=== PATIENT | female | born 1955 | race African-American/Black ===

== ENCOUNTER 2018-11-09 13:45 | Emergency (ER) | payer OTHER ==
[~2018-11-09] VITALS: Ht 149.9 cm; Wt 77.0 kg
[~2018-11-09 13:45] MED LIST: ACET-3161 PO; ALBU25PO2 INH; DIAZ10TA PO; FLUT1DIS3 IH; INHALER; LOSA25TA3 PO; NIFE10CA PO; NITR0.4T49 SL; P20 PO; Z PACK
[2018-11-09] MEDS ORDERED: ONDANSETRON HCL 4MG/2ML INJ IV STA (15:12)
[2018-11-09] MEDS ORDERED: MORPHINE SULFATE 4 MG/ML CPJ (NOT FOR IM USE) IV STA (15:12)
[2018-11-09 15:39] LABS: BASOPHILS % 1.2 % (0.0-2.0); EOSINOPHILS % 2.2 % (0.0-5.0); HEMATOCRIT. 45.7 % (36.0-48.0); HEMOGLOBIN. 14.8 g/dL (12.0-16.0); LYMPHOCYTES % 43.1 % (20.0-50.0); MEAN CORPUSCULAR HEMOGLOBIN 30.7 pg (28.0-32.0); MEAN CORPUSCULAR VOLUME 94.7 fL (81.0-99.0); MEAN PLATELET VOLUME 7.9 fl (7.4-10.4); MONOCYTES % 7.6 % (2.0-8.0); NEUTROPHILS % 45.9 % (40.0-76.0); PLATELET 272 x1000/uL (130-400); RED BLOOD CELL COUNT 4.82 mill/uL (4.2-5.4); RED CELL DISTRIBUTION WIDTH 14.3 % (11.6-14.6)
[2018-11-09 15:48] LABS: INR 1.1; PROTHROMBIN TIME 10.7 sec (9.1-11.1)
[2018-11-09 15:49] LABS: CHLORIDE 110 mEq/L (98-107)
[2018-11-09 16:28] LABS: CLARITY URINE CLEAR (CLEAR); COLOR URINE YELLOW (YELLOW); KETONES URINE NEGATIVE (NEGATIVE); LEUKOCYTE ESTERASE URINE NEGATIVE (NEGATIVE); NITRITE URINE NEGATIVE (NEGATIVE); OCCULT BLOOD URINE TRACE (NEGATIVE); PROTEIN URINE NEGATIVE (NEGATIVE); SPECIFIC GRAVITY URINE 1.014 (1.005-1.030); UROBILINOGEN URINE 0.2 E.U./dL (0.2-1.0)
[2018-11-09] MEDS ORDERED: MORPHINE SULFATE 4 MG/ML CPJ (NOT FOR IM USE) IV ONE (17:00)
[2018-11-09 18:10] VITALS: BP 145/85
== END 2018-11-09 18:11 | disposition home or self-care (01) ==
LOC: ER 13:45
DX: K92.2 Gastrointestinal hemorrhage, unspecified (principal); I10 Essential (primary) hypertension; J45.909 Unspecified asthma, uncomplicated; Z88.6 Allergy status to analgesic agent; F17.200 Nicotine dependence, unspecified, uncomplicated; Z98.890 Other specified postprocedural states
CPT/HCPCS: 36415; 74176; 80053; 81003; 83690; 85025; 85610; 96374; 96375; 96376; 99284; J2270; J2405

== ENCOUNTER 2020-09-05 13:03 | Inpatient (IN) | payer MEDICARE, OTHER ==
[~2020-09-05] VITALS: Ht 149.9 cm; Wt 81.2 kg
[2020-09-05] MEDS ORDERED: DILTIAZEM HCL 5MG/ML 5ML VIAL IV ONE ×2 (13:45→14:45)
[2020-09-05 14:20] LABS: BASOPHILS % 0.7 % (0.0-2.0); EOSINOPHILS % 1.8 % (0.0-5.0); HEMATOCRIT. 43.2 % (36.0-48.0); HEMOGLOBIN. 14.2 g/dL (12.0-16.0); MEAN CORPUSCULAR HEMOGLOBIN 30.5 pg (28.0-32.0); MEAN CORPUSCULAR VOLUME 92.7 fL (81.0-99.0); MEAN PLATELET VOLUME 8.3 fl (7.4-10.4); MONOCYTES % 6.4 % (2.0-8.0); NEUTROPHILS % 45.1 % (40.0-76.0); PLATELET 274 x1000/uL (130-400); RED BLOOD CELL COUNT 4.66 mill/uL (4.2-5.4); RED CELL DISTRIBUTION WIDTH 14.7 % (11.6-14.6)
[2020-09-05 14:36] LABS: CHLORIDE 111 mEq/L (98-107)
[2020-09-05 14:43] LABS: BETA HYDROXYBUTYRATE 0.1 mMol/L (0.0-0.3)
[2020-09-05 14:56] LABS: CLARITY URINE CLEAR (CLEAR); COLOR URINE YELLOW (YELLOW); KETONES URINE NEGATIVE (NEGATIVE); LEUKOCYTE ESTERASE URINE NEGATIVE (NEGATIVE); NITRITE URINE NEGATIVE (NEGATIVE); OCCULT BLOOD URINE NEGATIVE (NEGATIVE); PH URINE 8.5 (4.5-8.0); PROTEIN URINE NEGATIVE (NEGATIVE); SPECIFIC GRAVITY URINE 1.004 (1.005-1.030); UROBILINOGEN URINE 0.2 E.U./dL (0.2-1.0)
[2020-09-05] MEDS ORDERED: POTASSIUM CHLORIDE 20MEQ TABLET SR PO NR (15:00)
[2020-09-05 15:11] LABS: *AMPHETAMINES SCREEN URINE NEGATIVE (NEGATIVE); *BARBITURATES SCREEN URINE NEGATIVE (NEGATIVE); *BENZODIAZEPINES SCREEN URINE NEGATIVE (NEGATIVE); *COCAINE SCREEN URINE NEGATIVE (NEGATIVE)
[2020-09-05 15:12] LABS: CANNABINOID URINE SCREEN NEGATIVE (NEGATIVE); METHADONE URINE SCREEN NEGATIVE (NEGATIVE); OPIATES URINE SCREEN NEGATIVE (NEGATIVE); PHENCYCLIDINE URINE SCREEN NEGATIVE (NEGATIVE)
[2020-09-05] MEDS: ENOXAPARIN 80MG/0.8ML SYR SUBCUT SCH (15:20)
[2020-09-05] MEDS ORDERED: DILTIAZEM HCL 5MG/ML 5ML VIAL IV PRN (15:51)
[2020-09-05 16:47] LABS: PROTHROMBIN TIME 10.4 sec (9.6-11.0)
[2020-09-05] MEDS: DILTIAZEM HCL 60MG TABLET PO SCH (18:01)
[2020-09-05] MEDS ORDERED: ACETAMINOPHEN 325MG TABLET PO PRN ×2 (20:30)
[2020-09-05] MEDS ORDERED: ONDANSETRON HCL 4MG/2ML INJ IV PRN (20:30)
[2020-09-05] MEDS ORDERED: DOCUSATE SODIUM 100MG CAPSULE PO PRN (20:30)
[2020-09-05] MEDS ORDERED: LORAZEPAM 0.5MG TABLET PO PRN (20:30)
[2020-09-05] MEDS ORDERED: IPRATROPIUM/ALBUTEROL 0.5-3(2.5)MG/3ML NEB HHN PRN (20:30)
[2020-09-05] MEDS ORDERED: DILTIAZEM HCL 30MG TABLET PO SCH (22:00)
[2020-09-05 23:55] VITALS: BP 184/75
[2020-09-06] VITALS (9 sets, daily range): BP systolic 136–181; BP diastolic 71–113
[2020-09-06] MEDS: DILTIAZEM HCL 60MG TABLET PO SCH ×5 (01:02→23:05)
[2020-09-06] MEDS: MORPHINE SULFATE 2 MG/ML CPJ (NOT FOR IM USE) IV PRN ×4 (01:02→22:45)
[2020-09-06] MEDS: ENOXAPARIN 80MG/0.8ML SYR SUBCUT SCH ×2 (05:19→15:25)
[2020-09-06 06:34] LABS: HEMATOCRIT. 41.1 % (36.0-48.0); HEMOGLOBIN. 13.4 g/dL (12.0-16.0); LYMPHOCYTES % 43.4 % (20.0-50.0); MEAN CORPUSCULAR HEMOGLOBIN 30.2 pg (28.0-32.0); MEAN CORPUSCULAR VOLUME 92.6 fL (81.0-99.0); MEAN PLATELET VOLUME 8.2 fl (7.4-10.4); MONOCYTES % 7.7 % (2.0-8.0); NEUTROPHILS % 45.9 % (40.0-76.0); PLATELET 265 x1000/uL (130-400); RED BLOOD CELL COUNT 4.44 mill/uL (4.2-5.4); RED CELL DISTRIBUTION WIDTH 14.8 % (11.6-14.6)
[2020-09-06 07:18] LABS: CHLORIDE 107 mEq/L (98-107)
[2020-09-06 07:26] LABS: LDL CHOLESTEROL 181 mg/dL (5-100)
[2020-09-06 07:27] LABS: HDL CHOLESTEROL 46 mg/dL (40-59)
[2020-09-06] MEDS ORDERED: PNEUMOCOCCAL 23-VAL P-SAC VAC 0.5 ML IM ONE (12:00)
[2020-09-06] MEDS ORDERED: INFLUENZA VACCINE 05/PF 0.5 ML VIAL IM ONE (12:00)
[2020-09-07] VITALS (12 sets, daily range): BP systolic 120–199; BP diastolic 38–89
[2020-09-07] MEDS: DILTIAZEM HCL 60MG TABLET PO SCH ×3 (05:57→17:41)
[2020-09-07] MEDS: MORPHINE SULFATE 2 MG/ML CPJ (NOT FOR IM USE) IV PRN ×3 (05:57→22:01)
[2020-09-07] MEDS: ENOXAPARIN 80MG/0.8ML SYR SUBCUT SCH ×2 (05:58→15:09)
[2020-09-07 07:21] LABS: BASOPHILS % 1.1 % (0.0-2.0); EOSINOPHILS % 2.6 % (0.0-5.0); HEMATOCRIT. 43.4 % (36.0-48.0); HEMOGLOBIN. 14.2 g/dL (12.0-16.0); LYMPHOCYTES % 41.3 % (20.0-50.0); MEAN CORPUSCULAR HEMOGLOBIN 30.4 pg (28.0-32.0); MEAN CORPUSCULAR VOLUME 92.9 fL (81.0-99.0); MEAN PLATELET VOLUME 8.2 fl (7.4-10.4); MONOCYTES % 7.1 % (2.0-8.0); NEUTROPHILS % 47.9 % (40.0-76.0); PLATELET 267 x1000/uL (130-400); RED BLOOD CELL COUNT 4.67 mill/uL (4.2-5.4)
[2020-09-07 08:00] LABS: CHLORIDE 104 mEq/L (98-107)
[2020-09-07] MEDS ORDERED: LOSARTAN POTASSIUM 50 MG TABLET PO SCH (13:00)
[2020-09-07] MEDS ORDERED: POTASSIUM CHLORIDE 20MEQ TABLET SR PO NR (13:00)
[2020-09-07] MEDS: LOSARTAN POTASSIUM 25 MG TABLET PO SCH ×2 (15:00→17:40)
[2020-09-07] MEDS: CLONIDINE 0.1MG TABLET PO PRN (16:26)
[2020-09-07] MEDS: ATORVASTATIN CALCIUM 20MG TABLET PO SCH (22:00)
[2020-09-08] VITALS (9 sets, daily range): BP systolic 120–197; BP diastolic 50–128
[2020-09-08] MEDS: MORPHINE SULFATE 2 MG/ML CPJ (NOT FOR IM USE) IV PRN (00:45)
[2020-09-08] MEDS: DILTIAZEM HCL 60MG TABLET PO SCH ×5 (00:45→23:40)
[2020-09-08 06:44] LABS: BASOPHILS % 1.2 % (0.0-2.0); EOSINOPHILS % 3.4 % (0.0-5.0); HEMATOCRIT. 42.2 % (36.0-48.0); HEMOGLOBIN. 13.8 g/dL (12.0-16.0); LYMPHOCYTES % 36.6 % (20.0-50.0); MEAN CORPUSCULAR HEMOGLOBIN 30.3 pg (28.0-32.0); MEAN CORPUSCULAR VOLUME 92.4 fL (81.0-99.0); MEAN PLATELET VOLUME 7.8 fl (7.4-10.4); MONOCYTES % 7.8 % (2.0-8.0); PLATELET 259 x1000/uL (130-400); RED BLOOD CELL COUNT 4.57 mill/uL (4.2-5.4)
[2020-09-08 07:04] LABS: CHLORIDE 105 mEq/L (98-107)
[2020-09-08] MEDS: SODIUM CHLORIDE 0.45% 1000ML IV SCH ×2 (08:40→21:20)
[2020-09-08] MEDS: LOSARTAN POTASSIUM 25 MG TABLET PO SCH ×2 (08:40→16:01)
[2020-09-08] MEDS: CLONIDINE 0.1MG TABLET PO PRN ×3 (10:11→20:11)
[2020-09-08] MEDS ORDERED: HEPARIN SODIUM 1,000 UNIT/1ML VIAL IV ONE (12:00)
[2020-09-08] MEDS ORDERED: NITROGLYCERIN 50MCG/ML 10ML VIAL (CATH LAB) IV ONE (12:00)
[2020-09-08] MEDS ORDERED: NICARDIPINE 100MCG/ML 10ML VIAL (CATH LAB) IV ONE (12:00)
[2020-09-08] MEDS ORDERED: LIDOCAINE HCL 1% 20ML VIAL (Pyxis) INJ ONE (14:45)
[2020-09-08] MEDS ORDERED: IODIXANOL 320MG/ML 100 ML BOTTLE IV ONE (14:45)
[2020-09-08] MEDS ORDERED: ASPIRIN/SOD BICARB/CITRIC ACID 324MG TAB EFF ONE (14:45)
[2020-09-08] MEDS ORDERED: MIDAZOLAM HCL 2 MG/2 ML VIAL ONE (14:53)
[2020-09-08] MEDS ORDERED: FENTANYL CITRATE/PF 50MCG/ML 2ML VIAL ONE (14:53)
[2020-09-08] MEDS ORDERED: DIPHENHYDRAMINE 50MG/ML VIAL ONE (14:57)
[2020-09-08] MEDS ORDERED: HYDROCORTISONE SOD SUCCINATE 250 MG/2 ML VIAL ONE (14:58)
[2020-09-08] MEDS ORDERED: FAMOTIDINE 20MG/2ML VIAL IV ONE (14:59)
[2020-09-08] MEDS ORDERED: ACETAMINOPHEN 325MG TABLET PO PRN (15:15)
[2020-09-08] MEDS ORDERED: SODIUM CHLORIDE 0.45% 1,000 ML IV ONE (15:15)
[2020-09-08] MEDS ORDERED: ATROPINE SULFATE 1MG/10ML SYR IV PRN (15:15)
[2020-09-08] MEDS ORDERED: MORPHINE SULFATE 2 MG/ML CPJ (NOT FOR IM USE) IV PRN (15:15)
[2020-09-08] MEDS ORDERED: ATOR20TA PO (17:37)
[2020-09-08] MEDS ORDERED: DILT240C91 MT (17:37)
[2020-09-08] MEDS ORDERED: APIX5TAB MT (17:37)
[2020-09-08] MEDS: HYDROCODONE/ACETAMINOPHEN 5/325MG TABLET PO PRN (18:00)
[2020-09-08] MEDS: ATORVASTATIN CALCIUM 20MG TABLET PO SCH (20:10)
[2020-09-08] MEDS ORDERED: ENALAPRIL 2.5MG/2ML VIAL 2ML IV PRN (22:00)
[2020-09-08] MEDS ORDERED: ENALAPRIL 2.5MG/2ML VIAL 2ML IV NR (22:00)
[2020-09-09] VITALS (7 sets, daily range): BP systolic 135–184; BP diastolic 60–82
[2020-09-09] MEDS: HYDROCODONE/ACETAMINOPHEN 5/325MG TABLET PO PRN (01:53)
[2020-09-09] MEDS: DILTIAZEM HCL 60MG TABLET PO SCH (05:34)
[2020-09-09 06:51] LABS: BASOPHILS % 0.5 % (0.0-2.0); EOSINOPHILS % 0.5 % (0.0-5.0); HEMATOCRIT. 39.8 % (36.0-48.0); HEMOGLOBIN. 12.9 g/dL (12.0-16.0); LYMPHOCYTES % 29.3 % (20.0-50.0); MEAN CORPUSCULAR HEMOGLOBIN 30.3 pg (28.0-32.0); MEAN CORPUSCULAR VOLUME 93.5 fL (81.0-99.0); MONOCYTES % 6.6 % (2.0-8.0); NEUTROPHILS % 63.1 % (40.0-76.0); PLATELET 240 x1000/uL (130-400); RED BLOOD CELL COUNT 4.26 mill/uL (4.2-5.4); RED CELL DISTRIBUTION WIDTH 14.8 % (11.6-14.6)
[2020-09-09 07:24] LABS: CHLORIDE 103 mEq/L (98-107)
[2020-09-09] MEDS: LOSARTAN POTASSIUM 25 MG TABLET PO SCH (07:32)
== END 2020-09-09 11:03 | disposition home health service (06) | DRG 190 ==
LOC: ER 13:03 → 5EST 16:18 → EDBEDREQ 16:19 → EDBEDREQSVC 16:19 → ENRESERV 20:31 → 3WST 09-08 15:37
PROVIDERS: ADMIT Internal Medicine; ATTEND Internal Medicine
PROC: 4A023N7 Measurement of Cardiac Sampling and Pressure, Left Heart, Percutaneous Approach (ICD-10-PCS; principal; 2020-09-08)
PROC: B2111ZZ Fluoroscopy of Multiple Coronary Arteries using Low Osmolar Contrast (ICD-10-PCS; 2020-09-08)
PROC: B2151ZZ Fluoroscopy of Left Heart using Low Osmolar Contrast (ICD-10-PCS; 2020-09-08)
DX: I21.4 Non-ST elevation (NSTEMI) myocardial infarction (principal); I50.32 Chronic diastolic (congestive) heart failure; I20.9 Angina pectoris, unspecified; E78.5 Hyperlipidemia, unspecified; I11.0 Hypertensive heart disease with heart failure; I48.20 Chronic atrial fibrillation, unspecified; R06.89 Other abnormalities of breathing; F17.200 Nicotine dependence, unspecified, uncomplicated; I95.9 Hypotension, unspecified; Z20.828 Contact with and (suspected) exposure to other viral communicable diseases; Z79.01 Long term (current) use of anticoagulants; Z88.6 Allergy status to analgesic agent; Z79.1 Long term (current) use of non-steroidal anti-inflammatories (NSAID); Z79.899 Other long term (current) drug therapy; E44.1 Mild protein-calorie malnutrition
CPT/HCPCS: 36415; 71045; 71250; 80048; 80053; 80061; 80305; 81003; 82010; 82378; 83605; 83735; 83880; 84145; 84443; 84484; 85025; 85651; 87426; 90686; 93005; 93306; 93458; 99285; C1769; C1887; C1893; J1200; J1644; J1650; J1720; J2250; J2270; J3010; J3490; Q9967

== ENCOUNTER 2020-10-10 05:57 | Emergency (ER) | payer MEDICARE, OTHER ==
[~2020-10-10] VITALS: Ht 162.6 cm; Wt 91.0 kg
[~2020-10-10 05:57] MED LIST changes: +APIX5TAB MT; +ATOR20TA PO; +DILT240C91 MT; -INHALER; -NIFE10CA PO; -Z PACK
[2020-10-10] MEDS ORDERED: DEXAMETHASONE 10 MG/ML VIAL IV ONE (06:45)
[2020-10-10] MEDS ORDERED: HYDRALAZINE HCL 25MG TABLET PO ONE (06:45)
[2020-10-10] MEDS ORDERED: DIPHENHYDRAMINE 50MG/ML VIAL IV ONE (06:45)
[2020-10-10] MEDS ORDERED: FAMOTIDINE 20MG/2ML VIAL IV ONE (06:45)
[2020-10-10] MEDS ORDERED: EPINEPHRINE 1:1000 1 MG/ML AMP IM ONE (07:45)
[2020-10-10 07:47] LABS: EOSINOPHILS % 1.6 % (0.0-5.0); HEMATOCRIT. 37.6 % (36.0-48.0); HEMOGLOBIN. 12.3 g/dL (12.0-16.0); LYMPHOCYTES % 24.5 % (20.0-50.0); MEAN CORPUSCULAR HEMOGLOBIN 30.1 pg (28.0-32.0); MEAN CORPUSCULAR VOLUME 91.9 fL (81.0-99.0); MEAN PLATELET VOLUME 7.3 fl (7.4-10.4); MONOCYTES % 5.6 % (2.0-8.0); NEUTROPHILS % 67.3 % (40.0-76.0); PLATELET 369 x1000/uL (130-400); RED BLOOD CELL COUNT 4.09 mill/uL (4.2-5.4); RED CELL DISTRIBUTION WIDTH 14.5 % (11.6-14.6)
[2020-10-10 07:56] LABS: CHLORIDE 109 mEq/L (98-107)
[2020-10-10] MEDS ORDERED: HYDROCODONE/ACETAMINOPHEN 5/325MG TABLET PO ONE (09:00)
[2020-10-10 10:47] VITALS: BP 211/135
== END 2020-10-10 10:49 | disposition home or self-care (01) ==
LOC: ER 05:57
DX: T78.40XA Allergy, unspecified, initial encounter (principal); R22.0 Localized swelling, mass and lump, head; I10 Essential (primary) hypertension; X58.XXXA Exposure to other specified factors, initial encounter
CPT/HCPCS: 36415; 80053; 85025; 93005; 96372; 96374; 96375; 99284; J1100; J3490

== ENCOUNTER 2020-12-11 13:33 | Inpatient (IN) | payer MEDICARE, OTHER ==
[~2020-12-11] VITALS: Ht 149.9 cm; Wt 80.3 kg
[2020-12-11] MEDS ORDERED: METHYLPREDNISOLONE SOD SUCC 125 MG/2 ML VIAL IV STA (13:53)
[2020-12-11] MEDS ORDERED: IPRATROPIUM BROMIDE (0.02%) 0.5MG/2.5ML NEB HHN STA (13:53)
[2020-12-11] MEDS ORDERED: MAGNESIUM 2 G PREMIX 50 ML IV ONE (14:00)
[2020-12-11 14:17] LABS: BASOPHILS % 0.7 % (0.0-2.0); HEMATOCRIT. 36.2 % (36.0-48.0); HEMOGLOBIN. 11.4 g/dL (12.0-16.0); LYMPHOCYTES % 24.5 % (20.0-50.0); MEAN CORPUSCULAR HEMOGLOBIN 26.6 pg (28.0-32.0); MEAN CORPUSCULAR VOLUME 84.3 fL (81.0-99.0); MEAN PLATELET VOLUME 6.8 fl (7.4-10.4); MONOCYTES % 8.3 % (2.0-8.0); NEUTROPHILS % 64.5 % (40.0-76.0); PLATELET 368 x1000/uL (130-400); RED CELL DISTRIBUTION WIDTH 16.9 % (11.6-14.6)
[2020-12-11 14:24] LABS: CHLORIDE 105 mEq/L (98-107)
[2020-12-11] MEDS: ALBUTEROL (0.083%) 2.5MG/3ML NEB HHN SCH ×3 (14:30→15:08)
[2020-12-11] MEDS ORDERED: AZITHROMYCIN 500 MG in DEXT 5% WATER 250 ML IV ONE (14:45)
[2020-12-11] MEDS ORDERED: SODIUM CHLORIDE 0.9% 1000ML BAG (SEPSIS BOLUS) IV ONE (14:45)
[2020-12-11] MEDS ORDERED: CEFTRIAXONE 1 G PREMIX 50 ML IV ONE (14:45)
[2020-12-11 17:24] LABS: CLARITY URINE CLEAR (CLEAR); COLOR URINE YELLOW (YELLOW); KETONES URINE NEGATIVE (NEGATIVE); LEUKOCYTE ESTERASE URINE NEGATIVE (NEGATIVE); NITRITE URINE NEGATIVE (NEGATIVE); OCCULT BLOOD URINE NEGATIVE (NEGATIVE); PROTEIN URINE NEGATIVE (NEGATIVE); SPECIFIC GRAVITY URINE 1.013 (1.005-1.030); UROBILINOGEN URINE 0.2 E.U./dL (0.2-1.0)
[2020-12-11] MEDS ORDERED: HYDROCODONE/ACETAMINOPHEN 5/325MG TABLET PO ONE (17:45)
[2020-12-12] VITALS (7 sets, daily range): BP systolic 140–211; BP diastolic 68–122
[2020-12-12] MEDS: CLONIDINE 0.1MG TABLET PO PRN ×2 (00:12→06:43)
[2020-12-12] MEDS: HYDROCODONE/ACETAMINOPHEN 5/325MG TABLET PO PRN ×3 (00:12→17:47)
[2020-12-12] MEDS ORDERED: MORPHINE SULFATE 2 MG/ML CPJ (NOT FOR IM USE) IV PRN (08:45)
[2020-12-12] MEDS ORDERED: ONDANSETRON HCL 4MG/2ML INJ IV PRN (08:45)
[2020-12-12] MEDS ORDERED: NITROGLYCERIN 0.4MG TABLET SL SL PRN (08:45)
[2020-12-12] MEDS ORDERED: DOCUSATE SODIUM 100MG CAPSULE PO PRN (08:45)
[2020-12-12] MEDS ORDERED: IPRATROPIUM/ALBUTEROL 0.5-3(2.5)MG/3ML NEB HHN PRN (08:45)
[2020-12-12] MEDS ORDERED: LORAZEPAM 0.5MG TABLET PO PRN (08:45)
[2020-12-12] MEDS ORDERED: ACETAMINOPHEN 325MG TABLET PO PRN (08:45)
[2020-12-12] MEDS ORDERED: FUROSEMIDE 40MG/4ML VIAL IVP NR (09:00)
[2020-12-12] MEDS: LOSARTAN POTASSIUM 25 MG TABLET PO SCH ×2 (09:17→21:43)
[2020-12-12] MEDS: ENOXAPARIN 80MG/0.8ML SYR SUBCUT SCH ×2 (09:17→21:43)
[2020-12-12] MEDS: DILTIAZEM HCL 60MG TABLET PO SCH ×3 (09:18→17:47)
[2020-12-12] MEDS ORDERED: LABETALOL 5MG/ML SYR 20 MG/4 ML SYRINGE IV PRN (09:30)
[2020-12-12 16:49] LABS: D-DIMER 4.63 mg/L FEU (<0.50); INR 1.1; PROTHROMBIN TIME 11.1 sec (9.6-11.0)
[2020-12-12] MEDS ORDERED: DIAZEPAM 5 MG TABLET PO PRN (21:00)
[2020-12-12] MEDS: ATORVASTATIN CALCIUM 20MG TABLET PO SCH (21:43)
[2020-12-13] VITALS (7 sets, daily range): BP systolic 130–179; BP diastolic 67–79
[2020-12-13] MEDS: DILTIAZEM HCL 60MG TABLET PO SCH ×4 (00:05→18:02)
[2020-12-13] MEDS: CLONIDINE 0.1MG TABLET PO PRN (00:05)
[2020-12-13] MEDS: HYDROCODONE/ACETAMINOPHEN 5/325MG TABLET PO PRN ×3 (00:06→18:08)
[2020-12-13 08:27] LABS: CHLORIDE 100 mEq/L (98-107)
[2020-12-13 08:38] LABS: BASOPHILS % 0.4 % (0.0-2.0); EOSINOPHILS % 0.6 % (0.0-5.0); HEMATOCRIT. 32.6 % (36.0-48.0); HEMOGLOBIN. 10.3 g/dL (12.0-16.0); LYMPHOCYTES % 27.9 % (20.0-50.0); MEAN CORPUSCULAR HEMOGLOBIN 26.7 pg (28.0-32.0); MEAN CORPUSCULAR VOLUME 84.8 fL (81.0-99.0); MEAN PLATELET VOLUME 7.4 fl (7.4-10.4); MONOCYTES % 7.1 % (2.0-8.0); PLATELET 363 x1000/uL (130-400); RED BLOOD CELL COUNT 3.84 mill/uL (4.2-5.4); RED CELL DISTRIBUTION WIDTH 16.6 % (11.6-14.6)
[2020-12-13] MEDS ORDERED: FUROSEMIDE 40MG/4ML VIAL IVP SCH (09:00)
[2020-12-13] MEDS: LOSARTAN POTASSIUM 25 MG TABLET PO SCH ×2 (10:02→21:00)
[2020-12-13] MEDS: ENOXAPARIN 80MG/0.8ML SYR SUBCUT SCH ×2 (10:02→21:00)
[2020-12-13] MEDS: FUROSEMIDE 40MG/4ML VIAL IVP SCH (21:00)
[2020-12-13] MEDS: ATORVASTATIN CALCIUM 20MG TABLET PO SCH (21:00)
[2020-12-14] VITALS (7 sets, daily range): BP systolic 122–161; BP diastolic 67–86
[2020-12-14] MEDS: DILTIAZEM HCL 60MG TABLET PO SCH ×5 (05:25→23:30)
[2020-12-14] MEDS: HYDROCODONE/ACETAMINOPHEN 5/325MG TABLET PO PRN ×4 (06:25→23:30)
[2020-12-14 07:23] LABS: CHLORIDE 101 mEq/L (98-107)
[2020-12-14 07:33] LABS: BASOPHILS % 1.4 % (0.0-2.0); EOSINOPHILS % 1.6 % (0.0-5.0); HEMATOCRIT. 34.7 % (36.0-48.0); HEMOGLOBIN. 11.1 g/dL (12.0-16.0); MEAN CORPUSCULAR HEMOGLOBIN 26.9 pg (28.0-32.0); MEAN PLATELET VOLUME 7.1 fl (7.4-10.4); PLATELET 369 x1000/uL (130-400); RED BLOOD CELL COUNT 4.13 mill/uL (4.2-5.4); RED CELL DISTRIBUTION WIDTH 16.6 % (11.6-14.6)
[2020-12-14] MEDS: POTASSIUM CHLORIDE 20MEQ TABLET SR PO SCH (09:32)
[2020-12-14] MEDS: CLONIDINE 0.1MG TABLET PO SCH ×3 (09:34→21:24)
[2020-12-14] MEDS: LOSARTAN POTASSIUM 25 MG TABLET PO SCH ×2 (09:35→21:24)
[2020-12-14] MEDS: FUROSEMIDE 40MG/4ML VIAL IVP SCH ×2 (09:35→21:24)
[2020-12-14] MEDS: ENOXAPARIN 80MG/0.8ML SYR SUBCUT SCH ×2 (09:36→21:25)
[2020-12-14] MEDS: ATORVASTATIN CALCIUM 20MG TABLET PO SCH (21:24)
[2020-12-15] VITALS: BP 133/88
[2020-12-15 04:00] VITALS: BP 136/72
[2020-12-15] MEDS: DILTIAZEM HCL 60MG TABLET PO SCH ×4 (06:43→23:53)
[2020-12-15] MEDS: CLONIDINE 0.1MG TABLET PO SCH ×3 (06:43→21:36)
[2020-12-15 07:05] LABS: BASOPHILS % 1.3 % (0.0-2.0); EOSINOPHILS % 2.9 % (0.0-5.0); HEMATOCRIT. 33.6 % (36.0-48.0); HEMOGLOBIN. 10.7 g/dL (12.0-16.0); LYMPHOCYTES % 34.3 % (20.0-50.0); MEAN CORPUSCULAR HEMOGLOBIN 26.6 pg (28.0-32.0); MEAN CORPUSCULAR VOLUME 83.6 fL (81.0-99.0); MEAN PLATELET VOLUME 7.1 fl (7.4-10.4); MONOCYTES % 8.5 % (2.0-8.0); PLATELET 328 x1000/uL (130-400); RED BLOOD CELL COUNT 4.01 mill/uL (4.2-5.4); RED CELL DISTRIBUTION WIDTH 16.7 % (11.6-14.6)
[2020-12-15 07:09] LABS: PROTHROMBIN TIME 10.9 sec (9.6-11.0)
[2020-12-15 07:43] LABS: CHLORIDE 98 mEq/L (98-107)
[2020-12-15 08:00] VITALS: BP 133/70
[2020-12-15] MEDS: ENOXAPARIN 80MG/0.8ML SYR SUBCUT SCH ×2 (08:20→21:37)
[2020-12-15] MEDS: POTASSIUM CHLORIDE 20MEQ TABLET SR PO SCH (08:26)
[2020-12-15] MEDS: FUROSEMIDE 40MG/4ML VIAL IVP SCH ×2 (08:26→17:17)
[2020-12-15] MEDS: LOSARTAN POTASSIUM 25 MG TABLET PO SCH (08:26)
[2020-12-15 12:00] VITALS: BP 142/74
[2020-12-15] MEDS: HYDROCODONE/ACETAMINOPHEN 5/325MG TABLET PO PRN ×2 (13:24→21:36)
[2020-12-15 16:00] VITALS: BP 118/72
[2020-12-15 20:00] VITALS: BP 142/88
[2020-12-15] MEDS: ATORVASTATIN CALCIUM 20MG TABLET PO SCH (21:35)
[2020-12-15] MEDS: LOSARTAN POTASSIUM 50 MG TABLET PO SCH (21:35)
[2020-12-16] VITALS: BP 126/77
[2020-12-16 04:00] VITALS: BP 112/74
[2020-12-16 06:21] LABS: BASOPHILS % 1.1 % (0.0-2.0); EOSINOPHILS % 2.4 % (0.0-5.0); HEMATOCRIT. 34.8 % (36.0-48.0); MEAN CORPUSCULAR HEMOGLOBIN 26.3 pg (28.0-32.0); MEAN CORPUSCULAR VOLUME 83.3 fL (81.0-99.0); MONOCYTES % 8.4 % (2.0-8.0); NEUTROPHILS % 50.1 % (40.0-76.0); PLATELET 382 x1000/uL (130-400); RED BLOOD CELL COUNT 4.18 mill/uL (4.2-5.4); RED CELL DISTRIBUTION WIDTH 16.7 % (11.6-14.6)
[2020-12-16] MEDS: DILTIAZEM HCL 60MG TABLET PO SCH ×4 (06:25→23:12)
[2020-12-16] MEDS: CLONIDINE 0.1MG TABLET PO SCH ×3 (06:25→21:13)
[2020-12-16 06:55] LABS: CHLORIDE 98 mEq/L (98-107)
[2020-12-16 08:00] VITALS: BP 118/88
[2020-12-16] MEDS: ENOXAPARIN 80MG/0.8ML SYR SUBCUT SCH ×2 (09:09→21:14)
[2020-12-16] MEDS: FUROSEMIDE 40MG/4ML VIAL IVP SCH ×2 (09:09→17:00)
[2020-12-16] MEDS: POTASSIUM CHLORIDE 20MEQ TABLET SR PO SCH (09:09)
[2020-12-16] MEDS: LOSARTAN POTASSIUM 50 MG TABLET PO SCH ×2 (09:09→21:16)
[2020-12-16] MEDS: HYDROCODONE/ACETAMINOPHEN 5/325MG TABLET PO PRN ×2 (09:17→21:13)
[2020-12-16 12:00] VITALS: BP 138/82
[2020-12-16] MEDS ORDERED: CLON0.1T14 PO (14:20)
[2020-12-16] MEDS ORDERED: LOSA100T32 MT (14:20)
[2020-12-16] MEDS ORDERED: FURO40TA5 MT (14:20)
[2020-12-16] MEDS ORDERED: POTA8CAP20 MT (14:20)
[2020-12-16 16:00] VITALS: BP 113/68
[2020-12-16 20:00] VITALS: BP 155/85
[2020-12-16 20:18] LABS: BG BASE EXCESS 8.5 mmol/L (-2.0-2.0); BG DEOXYHEMOGLOBIN 14.1 % (0.0-5.0); BG FRACTION INSPIRED OXYGEN 21; BG HCO3 ACT 34.5 mmol/L (22.0-26.0); BG METHEMOGLOBIN 0.1 % (0.0-1.5); BG OXYGEN SATURATION 85.9 % (92.0-98.5); BG OXYHEMOGLOBIN 85.8 % (94.0-97.0); BG PCO2 54.1 mmHg (35.0-45.0); BG PH 7.423 (7.350-7.450); BG PO2 51.1 mmHg (75.0-100.0); BG TOTAL HEMOGLOBIN 12.6 g/dL (12.0-18.0); BG VENT MODE ROOM AIR
[2020-12-16] MEDS: ATORVASTATIN CALCIUM 20MG TABLET PO SCH (21:13)
[2020-12-17] VITALS: BP 116/74
[2020-12-17 02:04] LABS: BG BASE EXCESS 7.1 mmol/L (-2.0-2.0); BG CARBOXYHEMOGLOBIN 0.3 % (0.5-1.5); BG DEOXYHEMOGLOBIN 0.9 % (0.0-5.0); BG FRACTION INSPIRED OXYGEN 50; BG HCO3 ACT 33.3 mmol/L (22.0-26.0); BG METHEMOGLOBIN 0.1 % (0.0-1.5); BG OXYGEN SATURATION 99.1 % (92.0-98.5); BG OXYHEMOGLOBIN 98.7 % (94.0-97.0); BG PCO2 55.1 mmHg (35.0-45.0); BG PH 7.399 (7.350-7.450); BG PO2 162.7 mmHg (75.0-100.0); BG SAMPLE SITE LEFT BRACHIAL; BG TOTAL HEMOGLOBIN 11.7 g/dL (12.0-18.0); BG VENT MODE MASK - BIPAP
[2020-12-17 05:00] VITALS: BP 115/78
[2020-12-17] MEDS: CLONIDINE 0.1MG TABLET PO SCH ×3 (05:57→21:17)
[2020-12-17] MEDS: DILTIAZEM HCL 60MG TABLET PO SCH ×3 (05:58→17:34)
[2020-12-17 07:01] LABS: CHLORIDE 99 mEq/L (98-107)
[2020-12-17 07:44] LABS: BASOPHILS % 1.3 % (0.0-2.0); EOSINOPHILS % 3.8 % (0.0-5.0); HEMATOCRIT. 36.2 % (36.0-48.0); HEMOGLOBIN. 11.3 g/dL (12.0-16.0); LYMPHOCYTES % 32.6 % (20.0-50.0); MEAN CORPUSCULAR HEMOGLOBIN 26.3 pg (28.0-32.0); MEAN CORPUSCULAR VOLUME 84.2 fL (81.0-99.0); MEAN PLATELET VOLUME 7.3 fl (7.4-10.4); MONOCYTES % 9.8 % (2.0-8.0); NEUTROPHILS % 52.5 % (40.0-76.0); PLATELET 390 x1000/uL (130-400); RED BLOOD CELL COUNT 4.29 mill/uL (4.2-5.4)
[2020-12-17 08:06] VITALS: BP 90/56
[2020-12-17] MEDS: LOSARTAN POTASSIUM 50 MG TABLET PO SCH ×2 (09:00→21:18)
[2020-12-17] MEDS: FUROSEMIDE 40MG/4ML VIAL IVP SCH ×2 (09:26→17:34)
[2020-12-17] MEDS: ENOXAPARIN 80MG/0.8ML SYR SUBCUT SCH ×2 (09:26→21:19)
[2020-12-17] MEDS: POTASSIUM CHLORIDE 20MEQ TABLET SR PO SCH (09:42)
[2020-12-17 11:47] VITALS: BP 117/51
[2020-12-17] MEDS: HYDROCODONE/ACETAMINOPHEN 5/325MG TABLET PO PRN (12:15)
[2020-12-17 15:22] VITALS: BP 111/68
[2020-12-17 20:00] VITALS: BP 113/50
[2020-12-17] MEDS: ATORVASTATIN CALCIUM 20MG TABLET PO SCH (21:18)
[2020-12-18] VITALS: BP 149/61
[2020-12-18] MEDS: DILTIAZEM HCL 60MG TABLET PO SCH ×5 (00:06→20:59)
[2020-12-18] MEDS: HYDROCODONE/ACETAMINOPHEN 5/325MG TABLET PO PRN ×2 (00:14→19:19)
[2020-12-18 04:00] VITALS: BP 108/55
[2020-12-18] MEDS: CLONIDINE 0.1MG TABLET PO SCH ×3 (07:11→20:58)
[2020-12-18 08:12] VITALS: BP 103/82
[2020-12-18] MEDS: FUROSEMIDE 40MG/4ML VIAL IVP SCH ×2 (08:49→17:42)
[2020-12-18] MEDS: LOSARTAN POTASSIUM 50 MG TABLET PO SCH ×2 (08:49→21:00)
[2020-12-18] MEDS: POTASSIUM CHLORIDE 20MEQ TABLET SR PO SCH (08:49)
[2020-12-18] MEDS: ENOXAPARIN 80MG/0.8ML SYR SUBCUT SCH ×2 (08:52→21:05)
[2020-12-18 12:14] VITALS: BP 109/70
[2020-12-18 15:25] VITALS: BP 131/68
[2020-12-18 20:00] VITALS: BP 98/69
[2020-12-18] MEDS: ATORVASTATIN CALCIUM 20MG TABLET PO SCH (21:05)
[2020-12-19] VITALS: BP 106/71
[2020-12-19] MEDS: HYDROCODONE/ACETAMINOPHEN 5/325MG TABLET PO PRN ×2 (01:22→08:26)
[2020-12-19 04:00] VITALS: BP 136/73
[2020-12-19] MEDS: DILTIAZEM HCL 60MG TABLET PO SCH ×3 (05:21→18:00)
[2020-12-19] MEDS: CLONIDINE 0.1MG TABLET PO SCH ×2 (05:21→14:00)
[2020-12-19 08:00] VITALS: BP 122/66
[2020-12-19] MEDS: ENOXAPARIN 80MG/0.8ML SYR SUBCUT SCH (08:25)
[2020-12-19] MEDS: FUROSEMIDE 40MG/4ML VIAL IVP SCH ×2 (08:25→17:00)
[2020-12-19] MEDS: POTASSIUM CHLORIDE 20MEQ TABLET SR PO SCH (08:26)
[2020-12-19] MEDS: LOSARTAN POTASSIUM 50 MG TABLET PO SCH (08:26)
[2020-12-19 11:51] VITALS: BP 116/84
[2020-12-19 15:51] VITALS: BP 97/53
[2020-12-19 17:31] VITALS: BP 97/53
== END 2020-12-19 18:26 | disposition home health service (06) | DRG 136 ==
LOC: ER 13:33 → MICUSO 17:23 → 6WST 12-12 04:52
PROVIDERS: ADMIT Internal Medicine; ATTEND Internal Medicine
PROC: 5A09357 Assistance with Respiratory Ventilation, Less than 24 Consecutive Hours, Continuous Positive Airway Pressure (ICD-10-PCS; principal; 2020-12-17)
DX: C34.90 Malignant neoplasm of unspecified part of unspecified bronchus or lung (principal); J91.0 Malignant pleural effusion; I48.0 Paroxysmal atrial fibrillation; J96.01 Acute respiratory failure with hypoxia; I16.1 Hypertensive emergency; I50.32 Chronic diastolic (congestive) heart failure; I11.0 Hypertensive heart disease with heart failure; E78.5 Hyperlipidemia, unspecified; Z20.822 Contact with and (suspected) exposure to COVID-19; F17.210 Nicotine dependence, cigarettes, uncomplicated; J44.0 Chronic obstructive pulmonary disease with (acute) lower respiratory infection; Z79.01 Long term (current) use of anticoagulants; Z85.118 Personal history of other malignant neoplasm of bronchus and lung; Z88.6 Allergy status to analgesic agent; Z79.1 Long term (current) use of non-steroidal anti-inflammatories (NSAID); Z79.899 Other long term (current) drug therapy; Z86.73 Personal history of transient ischemic attack (TIA), and cerebral infarction without residual deficits
CPT/HCPCS: 36415; 36600; 71045; 76604; 80048; 80053; 81003; 82375; 82805; 83605; 83615; 83880; 84145; 84484; 85025; 85379; 93005; 94644; 94660; 99291; J0456; J0696; J1650; J1940; J2930; J3475; J3490; J7030; J7060; U0003

== ENCOUNTER 2021-01-25 17:03 | Inpatient (IN) | payer MEDICARE, OTHER ==
[~2021-01-25] VITALS: Ht 167.6 cm; Wt 75.7 kg
[~2021-01-25 17:03] MED LIST changes: +CLON0.1T14 PO; +FURO40TA5 MT; +LOSA100T32 MT; -LOSA25TA3 PO; -NITR0.4T49 SL; -P20 PO; +POTA8CAP20 MT
[2021-01-25] MEDS ORDERED: AZITHROMYCIN 500 MG in DEXT 5% WATER 250 ML IV ONE (17:45)
[2021-01-25] MEDS ORDERED: CEFTRIAXONE 1 G PREMIX 50 ML IV ONE (17:45)
[2021-01-25 17:55] LABS: BASOPHILS % 1.1 % (0.0-2.0); EOSINOPHILS % 0.8 % (0.0-5.0); HEMATOCRIT. 34.3 % (36.0-48.0); HEMOGLOBIN. 10.4 g/dL (12.0-16.0); MEAN CORPUSCULAR HEMOGLOBIN 24.5 pg (28.0-32.0); MEAN CORPUSCULAR VOLUME 80.4 fL (81.0-99.0); MEAN PLATELET VOLUME 6.7 fl (7.4-10.4); MONOCYTES % 9.6 % (2.0-8.0); NEUTROPHILS % 67.5 % (40.0-76.0); PLATELET 395 x1000/uL (130-400); RED BLOOD CELL COUNT 4.26 mill/uL (4.2-5.4); RED CELL DISTRIBUTION WIDTH 18.4 % (11.6-14.6)
[2021-01-25] MEDS ORDERED: METHYLPREDNISOLONE SOD SUCC 125 MG/2 ML VIAL IV ONE (18:00)
[2021-01-25] MEDS ORDERED: ALBUTEROL (0.083%) 2.5MG/3ML NEB HHN ONE (18:00)
[2021-01-25 18:03] LABS: CHLORIDE 99 mEq/L (98-107)
[2021-01-25 18:05] LABS: PROTHROMBIN TIME 11.2 sec (9.6-11.0)
[2021-01-25 18:11] LABS: BG BASE EXCESS 5.6 mmol/L (-2.0-2.0); BG CARBOXYHEMOGLOBIN 4.6 % (0.5-1.5); BG DEOXYHEMOGLOBIN 2.6 % (0.0-5.0); BG FRACTION INSPIRED OXYGEN 36; BG HCO3 ACT 32.1 mmol/L (22.0-26.0); BG METHEMOGLOBIN 0.3 % (0.0-1.5); BG OXYGEN SATURATION 97.3 % (92.0-98.5); BG OXYHEMOGLOBIN 92.5 % (94.0-97.0); BG PCO2 55.7 mmHg (35.0-45.0); BG PH 7.378 (7.350-7.450); BG PO2 106.1 mmHg (75.0-100.0); BG SAMPLE SITE LEFT BRACHIAL; BG TOTAL HEMOGLOBIN 11.5 g/dL (12.0-18.0); BG VENT MODE NASAL CANNULA
[2021-01-25] MEDS ORDERED: FUROSEMIDE 100MG/10ML VIAL IVP ONE (20:00)
[2021-01-25] MEDS ORDERED: MORPHINE SULFATE 4 MG/ML CPJ (NOT FOR IM USE) IV ONE (20:45)
[2021-01-25 21:16] LABS: CLARITY URINE CLEAR (CLEAR); COLOR URINE YELLOW (YELLOW); KETONES URINE NEGATIVE (NEGATIVE); LEUKOCYTE ESTERASE URINE NEGATIVE (NEGATIVE); NITRITE URINE NEGATIVE (NEGATIVE); OCCULT BLOOD URINE NEGATIVE (NEGATIVE); PROTEIN URINE NEGATIVE (NEGATIVE); SPECIFIC GRAVITY URINE 1.009 (1.005-1.030); UROBILINOGEN URINE 0.2 E.U./dL (0.2-1.0)
[2021-01-25] MEDS ORDERED: IOHEXOL-350 100 ML BOTTLE ONE (23:12)
[2021-01-25 23:30] VITALS: BP 143/89
[2021-01-26] VITALS: BP 157/94
[2021-01-26] MEDS ORDERED: DIPHENHYDRAMINE 50MG/ML VIAL IV PRN (00:30)
[2021-01-26] MEDS: MORPHINE SULFATE 2 MG/ML CPJ (NOT FOR IM USE) IV PRN ×2 (02:46→17:38)
[2021-01-26 04:00] VITALS: BP 147/90
[2021-01-26 08:00] VITALS: BP 163/101
[2021-01-26] MEDS ORDERED: IPRATROPIUM/ALBUTEROL 0.5-3(2.5)MG/3ML NEB HHN PRN (08:15)
[2021-01-26] MEDS ORDERED: ENOXAPARIN 30MG/0.3ML SYR SUBCUT SCH (09:00)
[2021-01-26] MEDS: METHYLPREDNISOLONE SOD SUCC 40 MG/ML VIAL IV SCH ×2 (09:22→17:38)
[2021-01-26] MEDS: HYDROCODONE/ACETAMINOPHEN 10/325MG TABLET PO PRN ×2 (09:23→20:58)
[2021-01-26] MEDS: FAMOTIDINE 20MG TABLET PO SCH ×2 (09:24→20:58)
[2021-01-26 10:18] LABS: BASOPHILS % 0.3 % (0.0-2.0); HEMATOCRIT. 33.9 % (36.0-48.0); HEMOGLOBIN. 10.2 g/dL (12.0-16.0); LYMPHOCYTES % 10.6 % (20.0-50.0); MEAN CORPUSCULAR HEMOGLOBIN 24.5 pg (28.0-32.0); MEAN CORPUSCULAR VOLUME 81.3 fL (81.0-99.0); MEAN PLATELET VOLUME 6.6 fl (7.4-10.4); MONOCYTES % 6.6 % (2.0-8.0); NEUTROPHILS % 82.5 % (40.0-76.0); PLATELET 352 x1000/uL (130-400); RED BLOOD CELL COUNT 4.18 mill/uL (4.2-5.4); RED CELL DISTRIBUTION WIDTH 18.7 % (11.6-14.6)
[2021-01-26 11:51] LABS: CHLORIDE 96 mEq/L (98-107)
[2021-01-26 12:00] VITALS: BP 159/89
[2021-01-26] MEDS ORDERED: CLONIDINE 0.1MG TABLET PO PRN (13:15)
[2021-01-26] MEDS: AMLODIPINE 10MG TABLET PO SCH (15:10)
[2021-01-26] MEDS: ENOXAPARIN 40MG/0.4ML SYR SUBCUT SCH (15:10)
[2021-01-26 16:00] VITALS: BP 166/102
[2021-01-26] MEDS ORDERED: CEFTRIAXONE 1,000 MG in DEXTROSE 5% WATER 50 ML IV SCH (17:00)
[2021-01-26] MEDS: LOSARTAN POTASSIUM 100 MG TABLET PO SCH (17:38)
[2021-01-26 20:00] VITALS: BP 185/103
[2021-01-26] MEDS: GUAIFENESIN 600MG ER TABLET PO SCH (20:58)
[2021-01-27] VITALS (7 sets, daily range): BP systolic 116–166; BP diastolic 76–110
[2021-01-27] MEDS: METHYLPREDNISOLONE SOD SUCC 40 MG/ML VIAL IV SCH ×3 (01:27→18:58)
[2021-01-27] MEDS: LOSARTAN POTASSIUM 100 MG TABLET PO SCH (08:41)
[2021-01-27] MEDS: GUAIFENESIN 600MG ER TABLET PO SCH ×2 (08:41→20:44)
[2021-01-27] MEDS: FAMOTIDINE 20MG TABLET PO SCH (08:42)
[2021-01-27] MEDS: AMLODIPINE 10MG TABLET PO SCH (08:42)
[2021-01-27] MEDS: MORPHINE SULFATE 2 MG/ML CPJ (NOT FOR IM USE) IV PRN ×3 (08:49→20:44)
[2021-01-27] MEDS ORDERED: HYDRALAZINE HCL 100MG TABLET PO ONE (09:00)
[2021-01-27] MEDS: ENOXAPARIN 40MG/0.4ML SYR SUBCUT SCH (09:00)
[2021-01-27] MEDS: HYDRALAZINE HCL 100MG TABLET PO SCH ×2 (14:58→22:01)
[2021-01-27] MEDS: PANTOPRAZOLE SODIUM 40 MG/VIAL IV SCH (20:44)
[2021-01-27] MEDS: HYDROCODONE/ACETAMINOPHEN 10/325MG TABLET PO PRN (22:06)
[2021-01-28] VITALS (7 sets, daily range): BP systolic 106–157; BP diastolic 64–105
[2021-01-28] MEDS: IPRATROPIUM/ALBUTEROL 0.5-3(2.5)MG/3ML NEB HHN SCH ×4 (01:02→22:20)
[2021-01-28] MEDS: METHYLPREDNISOLONE SOD SUCC 40 MG/ML VIAL IV SCH ×3 (02:29→16:20)
[2021-01-28] MEDS: HYDROCODONE/ACETAMINOPHEN 10/325MG TABLET PO PRN (02:53)
[2021-01-28] MEDS: HYDRALAZINE HCL 100MG TABLET PO SCH ×3 (06:15→20:59)
[2021-01-28 06:58] LABS: CHLORIDE 95 mEq/L (98-107)
[2021-01-28] MEDS: MORPHINE SULFATE 2 MG/ML CPJ (NOT FOR IM USE) IV PRN ×3 (07:00→20:59)
[2021-01-28 07:12] LABS: HEMATOCRIT. 33.3 % (36.0-48.0); MEAN CORPUSCULAR HEMOGLOBIN 24.7 pg (28.0-32.0); MEAN CORPUSCULAR VOLUME 82.4 fL (81.0-99.0); PLATELET 380 x1000/uL (130-400); RED BLOOD CELL COUNT 4.04 mill/uL (4.2-5.4); RED CELL DISTRIBUTION WIDTH 18.4 % (11.6-14.6)
[2021-01-28] MEDS: LOSARTAN POTASSIUM 100 MG TABLET PO SCH (08:43)
[2021-01-28] MEDS: AMLODIPINE 10MG TABLET PO SCH (08:44)
[2021-01-28] MEDS: GUAIFENESIN 600MG ER TABLET PO SCH ×2 (08:55→20:59)
[2021-01-28] MEDS: PANTOPRAZOLE SODIUM 40 MG/VIAL IV SCH ×2 (08:55→20:59)
[2021-01-28] MEDS ORDERED: NICARDIPINE 50 MG in SODIUM CHLORIDE 0.9% 230 ML IV PRN (17:15)
[2021-01-28 21:52] LABS: PLATELET ESTIMATE NORMAL
[2021-01-29] VITALS: BP 149/93
[2021-01-29] MEDS: IPRATROPIUM/ALBUTEROL 0.5-3(2.5)MG/3ML NEB HHN SCH (02:12)
[2021-01-29 04:00] VITALS: BP 139/94
[2021-01-29] MEDS: HYDRALAZINE HCL 100MG TABLET PO SCH (06:47)
[2021-01-29 06:58] LABS: CHLORIDE 92 mEq/L (98-107)
[2021-01-29 07:30] LABS: BASOPHILS % 0.3 % (0.0-2.0); HEMOGLOBIN. 10.4 g/dL (12.0-16.0); LYMPHOCYTES % 7.2 % (20.0-50.0); MEAN CORPUSCULAR VOLUME 80.9 fL (81.0-99.0); MONOCYTES % 9.5 % (2.0-8.0); PLATELET 371 x1000/uL (130-400); RED BLOOD CELL COUNT 4.32 mill/uL (4.2-5.4); RED CELL DISTRIBUTION WIDTH 18.8 % (11.6-14.6)
[2021-01-29 08:00] VITALS: BP 118/67
[2021-01-29 08:43] VITALS: BP 126/70
[2021-01-29] MEDS ORDERED: PREDNISONE 20MG TABLET PO SCH (09:00)
== END 2021-01-29 09:40 | disposition home or self-care (01) | DRG 197 ==
LOC: ER 17:03 → 5WST 21:56 → ENRESERV 22:13 → ER 22:56 → 5WST 01-26 01:45
PROVIDERS: ADMIT Internal Medicine; ATTEND Internal Medicine
DX: I87.1 Compression of vein (principal); C34.90 Malignant neoplasm of unspecified part of unspecified bronchus or lung; J91.0 Malignant pleural effusion; J96.21 Acute and chronic respiratory failure with hypoxia; C78.7 Secondary malignant neoplasm of liver and intrahepatic bile duct; E44.0 Moderate protein-calorie malnutrition; E87.1 Hypo-osmolality and hyponatremia; D64.9 Anemia, unspecified; I31.3 Pericardial effusion (noninflammatory); J44.9 Chronic obstructive pulmonary disease, unspecified; F17.210 Nicotine dependence, cigarettes, uncomplicated; R59.0 Localized enlarged lymph nodes; Z20.822 Contact with and (suspected) exposure to COVID-19; I25.10 Atherosclerotic heart disease of native coronary artery without angina pectoris; I48.91 Unspecified atrial fibrillation; E78.5 Hyperlipidemia, unspecified; E66.9 Obesity, unspecified; I11.0 Hypertensive heart disease with heart failure; I50.9 Heart failure, unspecified; Z85.118 Personal history of other malignant neoplasm of bronchus and lung; Z86.73 Personal history of transient ischemic attack (TIA), and cerebral infarction without residual deficits; Z99.81 Dependence on supplemental oxygen; Z88.6 Allergy status to analgesic agent; Z79.899 Other long term (current) drug therapy; Z79.1 Long term (current) use of non-steroidal anti-inflammatories (NSAID); Z68.27 Body mass index [BMI] 27.0-27.9, adult; N63.20 Unspecified lump in the left breast, unspecified quadrant
CPT/HCPCS: 36415; 36600; 71045; 71275; 76604; 76705; 80048; 80053; 81003; 82375; 82378; 82805; 83605; 83880; 84145; 84484; 85025; 86300; 87426; 93005; 93306; 94640; 99285; C9113; J0456; J0696; J1650; J1940; J2270; J2920; J2930; J7060; Q9967

== ENCOUNTER 2021-02-20 02:57 | Emergency (ER) | payer MEDICARE, MEDICAID ==
[~2021-02-20] VITALS: Ht 165.1 cm; Wt 110.0 kg
[2021-02-20] MEDS ORDERED: ONDANSETRON HCL 4MG/2ML INJ IV STA (03:19)
[2021-02-20] MEDS ORDERED: NA PHOS,M-B/NA PHOS,DI-BA ENEMA 118ML PR ONE (03:30)
[2021-02-20 04:13] LABS: BASOPHILS % 0.8 % (0.0-2.0); EOSINOPHILS % 1.3 % (0.0-5.0); HEMATOCRIT. 30.5 % (36.0-48.0); HEMOGLOBIN. 9.5 g/dL (12.0-16.0); LYMPHOCYTES % 9.7 % (20.0-50.0); MEAN CORPUSCULAR HEMOGLOBIN 25.4 pg (28.0-32.0); MEAN CORPUSCULAR VOLUME 81.7 fL (81.0-99.0); MEAN PLATELET VOLUME 6.5 fl (7.4-10.4); MONOCYTES % 8.4 % (2.0-8.0); NEUTROPHILS % 79.8 % (40.0-76.0); PLATELET 536 x1000/uL (130-400); RED BLOOD CELL COUNT 3.73 mill/uL (4.2-5.4); RED CELL DISTRIBUTION WIDTH 20.3 % (11.6-14.6)
[2021-02-20 04:22] LABS: CHLORIDE 99 mEq/L (98-107)
[2021-02-20 04:25] LABS: PROTHROMBIN TIME 10.9 sec (9.6-11.0)
[2021-02-20] MEDS ORDERED: DOCUSATE SODIUM 100MG CAPSULE PO SCH (04:30)
[2021-02-20] MEDS ORDERED: KETOROLAC 30MG/ML VIAL IV SCH (04:30)
[2021-02-20] MEDS ORDERED: MORPHINE SULFATE 4 MG/ML CPJ (NOT FOR IM USE) IV ONE (04:45)
[2021-02-20 05:20] LABS: CLARITY URINE CLEAR (CLEAR); COLOR URINE YELLOW (YELLOW); KETONES URINE NEGATIVE (NEGATIVE); LEUKOCYTE ESTERASE URINE NEGATIVE (NEGATIVE); NITRITE URINE NEGATIVE (NEGATIVE); OCCULT BLOOD URINE NEGATIVE (NEGATIVE); PH URINE 8.5 (4.5-8.0); PROTEIN URINE NEGATIVE (NEGATIVE); SPECIFIC GRAVITY URINE 1.007 (1.005-1.030); UROBILINOGEN URINE 0.2 E.U./dL (0.2-1.0)
[2021-02-20] MEDS ORDERED: METRONIDAZOLE 500 MG PREMIX 100 ML IV ONE (05:30)
[2021-02-20 06:00] VITALS: BP 128/84
== END 2021-02-20 07:07 | disposition home or self-care (01) ==
LOC: ER 02:57
DX: K52.9 Noninfective gastroenteritis and colitis, unspecified (principal); C80.1 Malignant (primary) neoplasm, unspecified; J44.1 Chronic obstructive pulmonary disease with (acute) exacerbation; I10 Essential (primary) hypertension; J45.909 Unspecified asthma, uncomplicated; Z88.6 Allergy status to analgesic agent; Z88.2 Allergy status to sulfonamides; Z79.899 Other long term (current) drug therapy
CPT/HCPCS: 36415; 74176; 80053; 81003; 83690; 85025; 85610; 93005; 96374; 99285; J1885; J2405